=== PATIENT | female | born 1995 | race Caucasian/White ===

== ENCOUNTER → 2017-01-20 | Outpatient (CLI) | payer MEDICAID ==
--- NOTE | 2017-01-20 21:35 | REP ---
FIRST TRIMESTER ULTRASOUND: REASON: Supervision of normal . Within the uterus there is a anechoic structure with increased echo surround it consistent with a decidual reaction. Within the gestational sac there is echogenic material consistent with a pole, the mean crown-rump measurement of which is consistent with an 8 week 5 day gestational age. Based on that the estimated date of delivery is 08/27/2017. Doppler interrogation of the heart shows a heart rate of 160 beats per minute. Evaluation of the maternal adnexal spaces showed no abnormalities. No evidence of a chorionic or subchronic abnormality was noted. IMPRESSION: Early OB ultrasound as described above. Signed by Richie Mendoza DO 01/21/2017 11:09 A
== END ==
LOC: M RAD 15:45
PROVIDERS: ATTEND Nurse Practitioner Family
DX: Z36 Encounter for antenatal screening of mother (principal)